=== PATIENT | male | born 1985 | race Caucasian/White ===

== ENCOUNTER 2017-09-19 03:50 | Emergency (ER) | payer OTHER | END 2017-09-19 04:48 | disposition other institution (70) | LOC: ED 03:50 | DX: Z02.89 Encounter for other administrative examinations (principal) | CPT/HCPCS: J7030 ==

== ENCOUNTER 2017-09-19 03:50 | Emergency (ER) | payer OTHER ==
[~2017-09-19] VITALS: Ht 175.3 cm; Wt 74.8 kg
[2017-09-19 03:53] VITALS: Ht 175.3 cm; Wt 74.8 kg
[2017-09-19 04:38] LABS: CARBON DIOXIDE 23.2 mmol/L (21-32); CHLORIDE SERUM 106 mmol/L (98-107); CREATININE SERUM 1.3 mg/dL (0.7-1.3); GFR1 > 60 mL/min; GLUCOSE SERUM 120 mg/dL (74-106); POTASSIUM SERUM 3.3 mmol/L (3.5-5.1); SODIUM SERUM 141 mmol/L (136-145)
[2017-09-19 04:40] LABS: BASOPHIL % 0.6 % (0-2); PLATELET COUNT 278 x10^3mcL (130-400)
[2017-09-19 04:42] LABS: ALBUMIN 4.4 g/dL (3.4-5.0); ALKALINE PHOSPHATASE 83 U/L (46-116); ALT/SGPT 31 U/L (16-63); AST/SGOT 17 U/L (15-37); BILIRUBIN TOTAL 0.38 mg/dL (0.20-1.00); TOTAL PROTEIN, SERUM 7.7 g/dL (6.4-8.2)
[2017-09-19 05:56] VITALS: BP 128/67
== END 2017-09-19 05:56 | disposition other institution (70) ==
LOC: ED 03:50
PROVIDERS: Emergency Medicine
DX: R07.2 Precordial pain (principal); R42 Dizziness and giddiness; R06.02 Shortness of breath
CPT/HCPCS: J2060; Q0092

== ENCOUNTER 2019-10-04 10:15 | Emergency (ER) | payer OTHER ==
[~2019-10-04] VITALS: Ht 175.3 cm; Wt 93.0 kg
[2019-10-04 10:41] VITALS: Ht 175.3 cm; Wt 93.0 kg
[2019-10-04 11:28] LABS: BASOPHIL % 0.4 % (0-2); PLATELET COUNT 275 x10^3mcL (130-400); RED CELL DISTRIBUTION WIDTH 12.9 % (11.5-14.5)
[2019-10-04 11:37] LABS: ALBUMIN 4.4 g/dL (3.4-5.0); BILIRUBIN TOTAL 1.03 mg/dL (0.20-1.00); CALCIUM 9.1 mg/dL (8.5-10.1); CARBON DIOXIDE 25.6 mmol/L (21-32); CREATININE SERUM 1.7 mg/dL (0.7-1.3); POTASSIUM SERUM 3.6 mmol/L (3.5-5.1); TOTAL PROTEIN, SERUM 7.3 g/dL (6.4-8.2)
[2019-10-04 13:20] LABS: microscopic required? YES; urine erythrocyte 3+ (NEGATIVE)
[2019-10-04 13:32] VITALS: BP 113/68
== END 2019-10-04 13:32 | disposition home or self-care (01) ==
LOC: ED 10:15
PROVIDERS: Emergency Medicine
DX: N23 Unspecified renal colic (principal)
CPT/HCPCS: J1885; J2405; J7030

== ENCOUNTER 2019-12-21 17:43 | Emergency (ER) | payer OTHER ==
[~2019-12-21] VITALS: Ht 172.7 cm; Wt 85.3 kg
[2019-12-21 18:03] VITALS: BP 121/64; Ht 172.7 cm; Wt 85.3 kg
== END 2019-12-21 19:19 | disposition left against medical advice (07) ==
LOC: ED 17:43
DX: Z53.21 Procedure and treatment not carried out due to patient leaving prior to being seen by health care provider (principal)